=== PATIENT | male | born 1990 | race Caucasian/White ===

== ENCOUNTER 2020-10-24 14:14 | Emergency (ER) | payer OTHER ==
[~2020-10-24] VITALS: Ht 190.5 cm; Wt 86.2 kg
[2020-10-24 14:15] VITALS: BP_SYST 128
[2020-10-24] MEDS ORDERED: DIPH-TET-PERTUS Vaccine 0.5 ML VIAL (ADACEL) I.M. ONE (14:30)
== END 2020-10-24 15:53 | disposition home or self-care (01) ==
LOC: SED 14:14
DX: S60.416A Abrasion of right little finger, initial encounter (principal); V49.49XA Driver injured in collision with other motor vehicles in traffic accident, initial encounter; Y93.89 Activity, other specified; Y92.89 Other specified places as the place of occurrence of the external cause; Y99.8 Other external cause status
CPT/HCPCS: 90715; 99283